=== PATIENT | male | born 1945 | race Caucasian/White ===

== ENCOUNTER 2017-08-11 09:47 | Emergency (ER) | payer MEDICARE ==
[2017-08-11 10:28] LABS: #Basophils 0.1 thou/uL (0.0-0.2); #Eosinphils 0.1 thou/uL (0.0-0.7); #Lymphocytes 1.4 thou/uL (1.20-3.40); #Monocytes 0.4 thou/uL (0.11-0.59); #Neutrophils 3.8 thou/uL (1.40-6.50); %Basophils 0.9 % (0.0-1.0); %Eosinophils 2.6 % (0.0-10.0); %Lymphocytes 24.1 % (21.0-51.0); %Monocytes 6.3 % (0.0-10.0); %Neutrophils 66.1 % (42.0-75.0); Hemoglobin 16.1 g/dL (14.0-18.0); Mean Corpuscular HGB CONC 33.1 g/dL (32.0-36.0); Mean Corpuscular Hemoglobin 33.6 pg (27.0-31.0); Platelet Count 197 thou/uL (130-400); RBC Distribution Width 11.8 % (11.5-14.5); Red Blood Cell (RBC) Count 4.78 mill/uL (4.70-6.10); White Blood Cell (WBC) Count 5.8 thou/uL (4.8-10.8)
[2017-08-11 10:50] LABS: ALT (SGPT) 8 U/L (8-55); AST (SGOT) 20 U/L (5-34); Albumin 4.5 g/dL (3.4-4.8); Alkaline Phosphatase 50 U/L (40-150); Anion Gap 12 mmol/L (10-20); BUN (Urea Nitrogen) 13 mg/dL (8.4-25.7); Bilirubin, Total 0.9 mg/dL (0.2-1.2); Calc. Creatinine Clearance 0 mL/min (70-130); Calcium 10.1 mg/dL (7.8-10.44); Carbon Dioxide 27 mmol/L (23-31); Chloride 106 mmol/L (98-107); Estimated GFR-MDRD 73; Globulin 2.7 g/dL (2.4-3.5); Glucose 90 mg/dL (83-110); Potassium 4.1 mmol/L (3.5-5.1); Protein, Total 7.2 g/dL (5.8-8.1); Sodium 141 mmol/L (136-145)
[2017-08-11 10:55] LABS: CKMB 3.9 ng/mL (0-6.6); Troponin I Less than 0.010 ng/mL (< 0.028)
[2017-08-11] MEDS ORDERED: Levofloxacin 500 mg/D5W 100 ml Premix Bag ONE (11:08)
[2017-08-11] MEDS ORDERED: methylPREDNISolone Sod Succ/PF 125 MG/2 ML VIAL ONE (11:08)
[2017-08-11] MEDS ORDERED: Water For Inject, Bacteriostat 30 ML ONE (11:08)
--- NOTE | 2017-08-11 11:12 | RAD ---
FRONTAL RADIOGRAPH CHEST: DATE: 08/11/17. COMPARISON: None. HISTORY: Dyspnea. FINDINGS: There is atherosclerotic calcification in the aortic arch. There are prominent emphysematous changes noted throughout both lungs with significant bilateral inte rstitial linear density, left greater than right. No lobar consolidation or alveolar edema. IMPRESSION: Interstitial opacity and pulmonary hyperinflation with underlying emphysematous change. No lobar con solidation or alveolar edema. POS: PÉREZH
== END 2017-08-11 14:22 | disposition home or self-care (01) ==
LOC: ERS 09:47
DX: J44.1 Chronic obstructive pulmonary disease with (acute) exacerbation (principal); I10 Essential (primary) hypertension; F17.210 Nicotine dependence, cigarettes, uncomplicated; Z79.899 Other long term (current) drug therapy; Z79.82 Long term (current) use of aspirin
CPT/HCPCS: 71045; 80053; 82553; 83605; 83880; 84484; 85025; 93005; 94640; 96365; 96366; 96375; J1956; J2930

== ENCOUNTER 2017-11-03 14:01 | Emergency (ER) | payer MEDICARE ==
--- NOTE | 2017-11-03 15:08 | RAD ---
RADIOGRAPH CHEST 1 VIEW RADIOGRAPH ABDOMEN 2 VIEWS: Date: 11-03-17 Time: 2:24 p.m. HISTORY: 72-year-old male with dyspnea. Unable to void. Unable to have bowel movement. FINDINGS: There is hyperinflation consistent with COPD. There is a small irregularly shaped stellate density ov erlying the lateral aspect of the left mid-lung zone. No acute infiltrate. Cardiomediastinal silhouet te is within normal limits. Lateral costophrenic angles are sharp. No evidence of pneumothorax or pneumoperitoneum. No pulmonary edema. Somewhat large amount of bowel g as in multiple loops of colon and some small intestine. Moderate volume of stool in the rectum and de scending colon. IMPRESSION: 1. Nonspecific bowel gas pattern, with somewhat large volume of colonic bowel gas. 2. Emphysema. 3. Small stellate density in left lung. This is probably scar, although it is difficult to identify o n previous radiograph of 08-11-17. Recommend chest CT to rule out a small lung cancer. BEBA [] POS: MOHIT
== END 2017-11-03 17:22 | disposition home or self-care (01) ==
LOC: ERS 14:01
DX: K59.00 Constipation, unspecified (principal); R39.198 Other difficulties with micturition; I10 Essential (primary) hypertension; J44.9 Chronic obstructive pulmonary disease, unspecified; F17.210 Nicotine dependence, cigarettes, uncomplicated; Z79.82 Long term (current) use of aspirin; Z79.899 Other long term (current) drug therapy
CPT/HCPCS: 74022

== ENCOUNTER 2020-02-06 10:20 | Emergency (ER) | payer MEDICARE ==
--- NOTE | 2020-02-06 11:23 | RAD ---
XR Chest 1 View Portable History: Chest pain Comparison: Radiograph July 2017 Findings: Similar appearance scattered scar formation lingular left upper lobe and right lower lobe. No pneumothorax. Background lung hyperinflation. No acute osseous abnormality. Mildly sclerotic T9 vertebral body. Impression: 1. Lung hyperinflation and obstructive pulmonary disease. 2. Sclerotic T9 vertebral body of unknown significance. Nonemergent chest CT may be beneficial.
[2020-02-06 11:31] LABS: #Basophils 0.1 thou/uL (0.0-0.2); #Lymphocytes 1.1 thou/uL (1.20-3.40); #Monocytes 0.4 thou/uL (0.11-0.59); #Neutrophils 4.9 thou/uL (1.40-6.50); %Eosinophils 0.5 % (0.0-10.0); %Lymphocytes 16.9 % (21.0-51.0); %Monocytes 6.1 % (0.0-10.0); %Neutrophils 75.6 % (42.0-75.0); Hemoglobin 15.7 g/dL (14.0-18.0); Mean Corpuscular HGB CONC 31.9 g/dL (32.0-36.0); Mean Corpuscular Hemoglobin 32.6 pg (27.0-31.0); Mean Platelet Volume 7.6 fL (7.4-10.4); Platelet Count 251 thou/uL (130-400); RBC Distribution Width 11.4 % (11.5-14.5); Red Blood Cell (RBC) Count 4.82 mill/uL (4.70-6.10); White Blood Cell (WBC) Count 6.5 thou/uL (4.8-10.8)
[2020-02-06 11:44] LABS: ALT (SGPT) Less than 7 U/L (8-55); AST (SGOT) 20 U/L (5-34); Albumin 4.4 g/dL (3.4-4.8); Alkaline Phosphatase 52 U/L (40-110); Anion Gap 15 mmol/L (10-20); BUN (Urea Nitrogen) 15 mg/dL (8.4-25.7); Bilirubin, Total 1.1 mg/dL (0.2-1.2); Calc. Creatinine Clearance 0 mL/min (70-130); Calcium 9.9 mg/dL (7.8-10.44); Carbon Dioxide 27 mmol/L (23-31); Chloride 103 mmol/L (98-107); Estimated GFR-MDRD 67; Globulin 2.9 g/dL (2.4-3.5); Glucose 87 mg/dL (83-110); Potassium 4.2 mmol/L (3.5-5.1); Protein, Total 7.3 g/dL (5.8-8.1); Sodium 141 mmol/L (136-145)
[2020-02-06] MEDS ORDERED: cefTRIAXone\\ROCEPHIN 2 GM VIAL ONE (12:15)
[2020-02-06] MEDS ORDERED: methylPREDNISolone Sod Succ/PF 125 MG/2 ML VIAL ONE (12:15)
[2020-02-06 23:19] LABS: SARS-CoV-2 MS2 Positive; SARS-CoV-2 N Gene Negative; SARS-CoV-2 S Gene Negative; SARS-CoV-2 by NAA Not Detected (NotDetected); SARS-CoV-2 orf1ab Negative
== END 2020-02-06 14:12 | disposition home or self-care (01) ==
LOC: ERS 10:20
DX: J44.1 Chronic obstructive pulmonary disease with (acute) exacerbation (principal); Z79.82 Long term (current) use of aspirin; Z79.899 Other long term (current) drug therapy; I10 Essential (primary) hypertension; Z87.891 Personal history of nicotine dependence; Z20.828 Contact with and (suspected) exposure to other viral communicable diseases
CPT/HCPCS: 71045; 80053; 83880; 84484; 85025; 93005; 94760; 96365; 96375; 99285; U0003; 87635; J0696; J2930

== ENCOUNTER 2020-11-05 08:56 | Outpatient (CLI) | payer MEDICARE | END 2020-11-05 08:57 | disposition home or self-care (01) | LOC: BICRAD 08:56 | PROVIDERS: ATTEND Internal Medicine Pulmonary Disease | DX: R06.00 Dyspnea, unspecified (principal) | CPT/HCPCS: 71046 ==

== ENCOUNTER 2021-04-23 13:37 | Inpatient (IN) | payer MEDICARE ==
[2021-04-23 14:25] LABS: #Lymphocytes 1.5 thou/uL (1.20-3.40); #Monocytes 0.4 thou/uL (0.11-0.59); #Neutrophils 4.5 thou/uL (1.40-6.50); %Basophils 0.4 % (0.0-1.0); %Eosinophils 0.4 % (0.0-10.0); %Lymphocytes 22.5 % (21.0-51.0); %Monocytes 6.7 % (0.0-10.0); Hemoglobin 14.1 g/dL (14.0-18.0); Mean Corpuscular HGB CONC 32.1 g/dL (32.0-36.0); Mean Corpuscular Hemoglobin 32.7 pg (27.0-31.0); Mean Platelet Volume 6.8 fL (7.4-10.4); Platelet Count 246 thou/uL (130-400); RBC Distribution Width 12.1 % (11.5-14.5); Red Blood Cell (RBC) Count 4.32 mill/uL (4.70-6.10); White Blood Cell (WBC) Count 6.5 thou/uL (4.8-10.8)
[2021-04-23 14:37] LABS: PTT 30.6 sec (22.9-36.1); Prothrombin Time 12.9 sec (12.0-14.7)
[2021-04-23 14:40] LABS: ALT (SGPT) 7 U/L (8-55); AST (SGOT) 18 U/L (5-34); Albumin 4.2 g/dL (3.4-4.8); Alkaline Phosphatase 61 U/L (40-110); Anion Gap 14 mmol/L (10-20); BUN (Urea Nitrogen) 13 mg/dL (8.4-25.7); Bilirubin, Total 0.8 mg/dL (0.2-1.2); Calc. Creatinine Clearance 0 mL/min (70-130); Calcium 9.5 mg/dL (7.8-10.44); Carbon Dioxide 26 mmol/L (23-31); Chloride 105 mmol/L (98-107); Globulin 2.9 g/dL (2.4-3.5); Glucose 105 mg/dL (83-110); Potassium 3.8 mmol/L (3.5-5.1); Protein, Total 7.1 g/dL (5.8-8.1); Sodium 141 mmol/L (136-145)
[2021-04-23 14:48] LABS: Actual Bicarbonate (HCO3a) 22.4 mEq/L (22-28); Analyzer IN Cardio ER; CO2 Tension 33.7 mmHg (35.0-45.0); Calcium, Ionized (arterial) 1.18 mmol/L (1.12-1.30); Carboxyhemoglobin (COHb) 0.9 gm% (0.0-3.0); Hemoglobin (Hb) 14.5 g/dL (14.0-18.0); O2 Tension (PaO2), arterial 150.3 mmHg (> 70.0); Potassium - ABG Lab 3.75 mmol/L (3.70-5.30); pH, Arterial 7.44 (7.35-7.45)
[2021-04-23 14:51] LABS: ALV-art Gradient 57.125 mmHg (0-20); Puncture Site LRA
[2021-04-23 15:06] LABS: SARS-CoV-2 NAA Rapid Test Not Detected (NotDetected)
[2021-04-23] MEDS ORDERED: Azithromycin 500 MG VIAL ONE (15:31)
[2021-04-23] MEDS ORDERED: cefTRIAXone\\ROCEPHIN 2 GM VIAL ONE (15:31)
[2021-04-23] MEDS ORDERED: Aspirin Chewable 81 MG TAB ONE (15:49)
[2021-04-23] MEDS ORDERED: Ondansetron PF 4 MG/2 ML Vial ONE (15:49)
[2021-04-23] MEDS ORDERED: Nitroglycerin 0.4 MG TAB 1 EACH ONE ×2 (15:49)
[2021-04-23 17:08] LABS: Lactic Acid 1.4 mmol/L (0.5-2.2)
[2021-04-23 19:03] LABS: Troponin I Less than 0.010 ng/mL (< 0.028)
[2021-04-23 21:32] LABS: Troponin I Less than 0.010 ng/mL (< 0.028)
[2021-04-24] MEDS ORDERED: Ondansetron ODT 4 MG TAB PO PRN (09:02)
[2021-04-24] MEDS ORDERED: Ondansetron PF 4 MG/2 ML Vial IVP PRN (09:02)
[2021-04-24] MEDS ORDERED: Lisinopril 20 MG TAB PO SCH (09:15)
[2021-04-24 14:24] VITALS: BMI 23.9
[2021-04-24] MEDS: methylPREDNISolone Sod Succ 40 MG VIAL IVP SCH ×3 (15:04→23:51)
[2021-04-24] MEDS: cefTRIAXone\\ROCEPHIN 1 GM in Sodium Chloride 0.9% 100 ML IVPB SCH (15:38)
[2021-04-24] MEDS: Azithromycin 500 MG in Sodium Chloride 0.9% 250 ML 250 ML IVPB SCH (16:24)
[2021-04-24] MEDS: Arformoterol 15 MCG/2 ML NEB NEB SCH (19:25)
[2021-04-24] MEDS: Famotidine 20 MG TAB PO SCH (20:16)
[2021-04-24] MEDS: Tamsulosin HCl 0.4 MG CAP PO SCH (21:42)
[2021-04-25] MEDS: methylPREDNISolone Sod Succ 40 MG VIAL IVP SCH ×4 (05:45→23:10)
[2021-04-25] MEDS: Arformoterol 15 MCG/2 ML NEB NEB SCH ×2 (06:36→19:30)
[2021-04-25] MEDS: Enoxaparin Sodium 40 MG/0.4 ML SYRINGE SC SCH (07:56)
[2021-04-25] MEDS: Famotidine 20 MG TAB PO SCH ×2 (07:57→21:22)
[2021-04-25] MEDS: Lisinopril 20 MG TAB PO SCH (07:57)
[2021-04-25 08:06] LABS: #Lymphocytes 0.7 thou/uL (1.20-3.40); #Monocytes 0.2 thou/uL (0.11-0.59); #Neutrophils 5.7 thou/uL (1.40-6.50); %Basophils 0.1 % (0.0-1.0); %Eosinophils 0.1 % (0.0-10.0); %Lymphocytes 10.2 % (21.0-51.0); %Monocytes 2.5 % (0.0-10.0); Hemoglobin 13.5 g/dL (14.0-18.0); Mean Corpuscular HGB CONC 32.2 g/dL (32.0-36.0); Mean Platelet Volume 6.9 fL (7.4-10.4); Platelet Count 242 thou/uL (130-400); RBC Distribution Width 12.1 % (11.5-14.5); Red Blood Cell (RBC) Count 4.11 mill/uL (4.70-6.10); White Blood Cell (WBC) Count 6.6 thou/uL (4.8-10.8)
[2021-04-25 08:14] LABS: Anion Gap 14 mmol/L (10-20); BUN (Urea Nitrogen) 24 mg/dL (8.4-25.7); Calc. Creatinine Clearance 77 mL/min (70-130); Calcium 9.4 mg/dL (7.8-10.44); Carbon Dioxide 24 mmol/L (23-31); Chloride 104 mmol/L (98-107); Glucose 113 mg/dL (83-110); Potassium 4.5 mmol/L (3.5-5.1); Sodium 137 mmol/L (136-145)
[2021-04-25] MEDS ORDERED: Tamsulosin HCl 0.4 MG CAP PO SCH (09:00)
[2021-04-25] MEDS: Fluticasone Propionate Nasal Spray 16 gm Bottle NASAL SCH (09:19)
[2021-04-25] MEDS ORDERED: Guaifenesin DM 100-10/5 ML UDCUP PO PRN (14:49)
[2021-04-25] MEDS: cefTRIAXone\\ROCEPHIN 1 GM in Sodium Chloride 0.9% 100 ML IVPB SCH (14:52)
[2021-04-25] MEDS ORDERED: Oxymetazoline HCl 0.05% (30 ML BOT) NS PRN (15:22)
[2021-04-25] MEDS: Azithromycin 500 MG in Sodium Chloride 0.9% 250 ML 250 ML IVPB SCH (15:49)
[2021-04-25] MEDS: guaiFENesin/DM ER PO SCH (21:22)
[2021-04-25] MEDS: Tamsulosin HCl 0.4 MG CAP PO SCH (21:22)
[2021-04-26] MEDS: methylPREDNISolone Sod Succ 40 MG VIAL IVP SCH ×4 (05:16→23:28)
[2021-04-26] MEDS: Arformoterol 15 MCG/2 ML NEB NEB SCH ×2 (06:56→19:12)
[2021-04-26] MEDS: Enoxaparin Sodium 40 MG/0.4 ML SYRINGE SC SCH (08:28)
[2021-04-26] MEDS: Lisinopril 20 MG TAB PO SCH (08:29)
[2021-04-26] MEDS: guaiFENesin/DM ER PO SCH ×2 (08:29→20:27)
[2021-04-26] MEDS: Famotidine 20 MG TAB PO SCH ×2 (08:29→20:27)
[2021-04-26] MEDS: Fluticasone Propionate Nasal Spray 16 gm Bottle NASAL SCH (09:07)
[2021-04-26] MEDS ORDERED: Benzonatate 100 MG CAP PO PRN (09:48)
[2021-04-26] MEDS: Azithromycin 250 MG TAB PO SCH (15:13)
[2021-04-26] MEDS: cefTRIAXone\\ROCEPHIN 1 GM in Sodium Chloride 0.9% 100 ML IVPB SCH (15:14)
[2021-04-26] MEDS: Tamsulosin HCl 0.4 MG CAP PO SCH (20:27)
[2021-04-27] MEDS: methylPREDNISolone Sod Succ 40 MG VIAL IVP SCH ×4 (05:44→23:07)
[2021-04-27] MEDS: Arformoterol 15 MCG/2 ML NEB NEB SCH ×2 (07:31→20:09)
[2021-04-27] MEDS: Enoxaparin Sodium 40 MG/0.4 ML SYRINGE SC SCH (08:56)
[2021-04-27] MEDS: Fluticasone Propionate Nasal Spray 16 gm Bottle NASAL SCH (08:56)
[2021-04-27] MEDS: Acetaminophen 325 MG TAB PO PRN (08:56)
[2021-04-27] MEDS: Lisinopril 20 MG TAB PO SCH (08:58)
[2021-04-27] MEDS: Famotidine 20 MG TAB PO SCH ×2 (08:58→20:47)
[2021-04-27] MEDS: guaiFENesin/DM ER PO SCH ×2 (08:58→20:48)
[2021-04-27] MEDS: cefTRIAXone\\ROCEPHIN 1 GM in Sodium Chloride 0.9% 100 ML IVPB SCH (15:33)
[2021-04-27] MEDS: Azithromycin 250 MG TAB PO SCH (15:33)
[2021-04-27] MEDS ORDERED: hydrALAZINE 20 MG/ML VIAL SLOW IVP PRN (20:14)
[2021-04-27] MEDS: Tamsulosin HCl 0.4 MG CAP PO SCH (20:47)
[2021-04-28] MEDS: methylPREDNISolone Sod Succ 40 MG VIAL IVP SCH ×4 (06:17→23:43)
[2021-04-28] MEDS: Acetaminophen 325 MG TAB PO PRN ×2 (06:19→20:43)
[2021-04-28] MEDS: Arformoterol 15 MCG/2 ML NEB NEB SCH ×2 (07:31→19:00)
[2021-04-28] MEDS: Famotidine 20 MG TAB PO SCH ×2 (09:36→20:41)
[2021-04-28] MEDS: Enoxaparin Sodium 40 MG/0.4 ML SYRINGE SC SCH (09:36)
[2021-04-28] MEDS: Fluticasone Propionate Nasal Spray 16 gm Bottle NASAL SCH (09:38)
[2021-04-28] MEDS: Lisinopril 20 MG TAB PO SCH (09:38)
[2021-04-28] MEDS: guaiFENesin/DM ER PO SCH ×2 (09:38→20:42)
[2021-04-28] MEDS: Azithromycin 250 MG TAB PO SCH (16:00)
[2021-04-28] MEDS: cefTRIAXone\\ROCEPHIN 1 GM in Sodium Chloride 0.9% 100 ML IVPB SCH (16:01)
[2021-04-28] MEDS: Tamsulosin HCl 0.4 MG CAP PO SCH (20:41)
[2021-04-29] MEDS: methylPREDNISolone Sod Succ 40 MG VIAL IVP SCH ×3 (05:05→18:23)
[2021-04-29] MEDS: Arformoterol 15 MCG/2 ML NEB NEB SCH ×2 (07:10→18:56)
[2021-04-29] MEDS: Lisinopril 20 MG TAB PO SCH (08:13)
[2021-04-29] MEDS: Enoxaparin Sodium 40 MG/0.4 ML SYRINGE SC SCH (08:13)
[2021-04-29] MEDS: guaiFENesin/DM ER PO SCH ×2 (08:14→21:05)
[2021-04-29] MEDS: Famotidine 20 MG TAB PO SCH ×2 (08:16→21:05)
[2021-04-29] MEDS: Fluticasone Propionate Nasal Spray 16 gm Bottle NASAL SCH (08:17)
[2021-04-29] MEDS: Acetaminophen 325 MG TAB PO PRN (12:10)
[2021-04-29] MEDS: Azithromycin 250 MG TAB PO SCH (16:17)
[2021-04-29] MEDS: cefTRIAXone\\ROCEPHIN 1 GM in Sodium Chloride 0.9% 100 ML IVPB SCH (16:17)
[2021-04-29 20:48] LABS: SARS-CoV-2 PCR by NAA Not Detected (NotDetected)
[2021-04-29] MEDS: Tamsulosin HCl 0.4 MG CAP PO SCH (21:05)
[2021-04-29] MEDS: Cefdinir 300 MG CAP PO SCH (21:05)
[2021-04-30] MEDS: Arformoterol 15 MCG/2 ML NEB NEB SCH ×2 (06:38→19:02)
[2021-04-30] MEDS: Cefdinir 300 MG CAP PO SCH ×2 (08:12→20:24)
[2021-04-30] MEDS: Famotidine 20 MG TAB PO SCH ×2 (08:12→20:24)
[2021-04-30] MEDS: predniSONE 20 MG TAB PO SCH (08:12)
[2021-04-30] MEDS: guaiFENesin/DM ER PO SCH ×2 (08:13→20:24)
[2021-04-30] MEDS: Enoxaparin Sodium 40 MG/0.4 ML SYRINGE SC SCH (08:13)
[2021-04-30] MEDS: Lisinopril 20 MG TAB PO SCH (08:13)
[2021-04-30] MEDS: Fluticasone Propionate Nasal Spray 16 gm Bottle NASAL SCH (08:13)
[2021-04-30] MEDS: Azithromycin 250 MG TAB PO SCH (15:16)
[2021-04-30] MEDS: Tamsulosin HCl 0.4 MG CAP PO SCH (20:24)
[2021-05-01] MEDS: Enoxaparin Sodium 40 MG/0.4 ML SYRINGE SC SCH (07:58)
[2021-05-01] MEDS: Lisinopril 20 MG TAB PO SCH (07:59)
[2021-05-01] MEDS: Fluticasone Propionate Nasal Spray 16 gm Bottle NASAL SCH (07:59)
[2021-05-01] MEDS: Cefdinir 300 MG CAP PO SCH (07:59)
[2021-05-01] MEDS: Famotidine 20 MG TAB PO SCH (07:59)
[2021-05-01] MEDS: predniSONE 20 MG TAB PO SCH (07:59)
[2021-05-01] MEDS: guaiFENesin/DM ER PO SCH (08:00)
[2021-05-01] MEDS: Acetaminophen 325 MG TAB PO PRN (08:01)
[2021-05-01] MEDS: Arformoterol 15 MCG/2 ML NEB NEB SCH (08:02)
[2021-05-01 09:17] VITALS: BP 151/72; TEMP 97.7
[2021-05-01] MEDS: Azithromycin 250 MG TAB PO SCH (13:24)
== END 2021-05-01 15:03 | DRG 871 ==
LOC: ERS 13:37 → ERHOLD 18:08 → T4-B 04-24 14:15
PROVIDERS: ADMIT Internal Medicine; ATTEND Internal Medicine
PROC: 5A09357 Assistance with Respiratory Ventilation, Less than 24 Consecutive Hours, Continuous Positive Airway Pressure (ICD-10-PCS; principal; 2021-04-23)
DX: A41.9 Sepsis, unspecified organism (principal); Z20.822 Contact with and (suspected) exposure to COVID-19; J18.9 Pneumonia, unspecified organism; J96.01 Acute respiratory failure with hypoxia; J44.1 Chronic obstructive pulmonary disease with (acute) exacerbation; J44.0 Chronic obstructive pulmonary disease with (acute) lower respiratory infection; N40.0 Benign prostatic hyperplasia without lower urinary tract symptoms; R65.20 Severe sepsis without septic shock; I10 Essential (primary) hypertension; R04.0 Epistaxis; I08.1 Rheumatic disorders of both mitral and tricuspid valves; Z89.022 Acquired absence of left finger(s); Z90.49 Acquired absence of other specified parts of digestive tract; Z87.891 Personal history of nicotine dependence; Z98.890 Other specified postprocedural states; Z82.49 Family history of ischemic heart disease and other diseases of the circulatory system; Z80.9 Family history of malignant neoplasm, unspecified; Z79.899 Other long term (current) drug therapy; Z79.51 Long term (current) use of inhaled steroids
CPT/HCPCS: 36415; 36416; 36600; 71045; 80048; 80053; 82805; 83605; 83880; 84145; 84484; 85025; 85610; 85730; 87040; 87149; 93005; 93306; 94640; 94644; 94660; 94760; 96374; 96375; J0360; J0456; J0696; J1650; J2405; J2920; J3490; J7050; J7512; J7620; U0002; U0003; U0005

== ENCOUNTER 2021-05-20 09:33 | Outpatient (CLI) | payer MEDICARE | END 2021-05-20 09:34 | disposition home or self-care (01) | LOC: BICRAD 09:33 | PROVIDERS: ATTEND Physician Assistant | DX: J96.01 Acute respiratory failure with hypoxia (principal); J44.1 Chronic obstructive pulmonary disease with (acute) exacerbation; J16.8 Pneumonia due to other specified infectious organisms; J98.4 Other disorders of lung; I70.0 Atherosclerosis of aorta | CPT/HCPCS: 71046 ==

== ENCOUNTER 2021-11-26 08:21 | Emergency (ER) | payer OTHER, MEDICARE ==
[2021-11-26 09:37] LABS: #Eosinphils 0.1 thou/uL (0.0-0.7); #Lymphocytes 0.9 thou/uL (1.20-3.40); #Monocytes 0.5 thou/uL (0.11-0.59); #Neutrophils 5.3 thou/uL (1.40-6.50); %Basophils 0.4 % (0.0-1.0); %Eosinophils 1.7 % (0.0-10.0); %Monocytes 7.6 % (0.0-10.0); %Neutrophils 77.3 % (42.0-75.0); Mean Corpuscular HGB CONC 33.1 g/dL (32.0-36.0); Mean Corpuscular Hemoglobin 34.5 pg (27.0-31.0); Mean Platelet Volume 7.6 fL (7.4-10.4); Platelet Count 162 thou/uL (130-400); RBC Distribution Width 11.2 % (11.5-14.5); Red Blood Cell (RBC) Count 4.06 mill/uL (4.70-6.10); White Blood Cell (WBC) Count 6.8 thou/uL (4.8-10.8)
[2021-11-26 09:54] LABS: ALT (SGPT) Less than 7 U/L (8-55); AST (SGOT) 12 U/L (5-34); Albumin 4.2 g/dL (3.4-4.8); Alkaline Phosphatase 57 U/L (40-110); Anion Gap 15 mmol/L (10-20); BUN (Urea Nitrogen) 18 mg/dL (8.4-25.7); Bilirubin, Total 0.8 mg/dL (0.2-1.2); Calc. Creatinine Clearance 0 mL/min (70-130); Carbon Dioxide 25 mmol/L (23-31); Chloride 108 mmol/L (98-107); Estimated GFR 61; Globulin 2.7 g/dL (2.4-3.5); Glucose 116 mg/dL (83-110); Potassium 3.9 mmol/L (3.5-5.1); Protein, Total 6.9 g/dL (5.8-8.1); Sodium 144 mmol/L (136-145)
[2021-11-26] MEDS ORDERED: Cephalexin 250 MG CAP ONE (10:15)
[2021-11-26] MEDS ORDERED: Sulfameth/Trimethoprim DS 800-160mg TAB ONE (10:15)
== END 2021-11-26 10:27 | disposition home or self-care (01) ==
LOC: ERS 08:21
DX: S81.812A Laceration without foreign body, left lower leg, initial encounter (principal); L03.116 Cellulitis of left lower limb; I10 Essential (primary) hypertension; J44.9 Chronic obstructive pulmonary disease, unspecified; Z87.891 Personal history of nicotine dependence; Z79.899 Other long term (current) drug therapy; Z79.82 Long term (current) use of aspirin; W54.8XXA Other contact with dog, initial encounter
CPT/HCPCS: 36415; 80053; 83605; 85025; 87040; 99283